=== PATIENT | male | born 1990 | race Caucasian/White ===

== ENCOUNTER 2020-06-17 18:02 | Emergency (ER) | payer BC, SELFPAY ==
--- NOTE | ~2020-06-17 | XR_ITS ---
EXAMINATION: XR chest 2V 06/17/2020 18:35 INDICATION: Right-sided chest pain and shortness of breath PROCEDURE: 2 view chest COMPARISON: No prior studies for comparison. FINDINGS: The lungs are clear. The cardiomediastinal silhouette is within normal limits. There are no pleural effusions. There is no pneumothorax suspected. IMPRESSION: 1: NO ACUTE CARDIOPULMONARY DISEASE. Reviewed, dictated and finalized at location A.
[2020-06-17 18:04] VITALS: BP 197/119; PULSE 104; RESP 18; TEMP 36.6; O2SAT 99
--- NOTE | 2020-06-17 18:08 | ECG_ITS ---
Measurements Intervals [place] Rate: 93 P: 47 VA: 148 QRS: 7 QRSD: 72 T: 34 QT: 303 QTc: 378 Interpretive Statements SINUS RHYTHM WITH SINUS ARRHYTHMIA NORMAL ECG Electronically Signed On 06-17-2020 18:17:46 CDT by Allen Bashir D.O.
[2020-06-17 18:09] VITALS: BP 197/119; PULSE 115; PULSE 99; RESP 28; O2SAT 95
--- NOTE | 2020-06-17 18:17 | ED.CHESTPAIN ---
HPI - Chest Pain General Chief Complaint: Chest Pain Stated Complaint: CP Time Seen by Provider: 06/17/20 18:16 Source: patient History of Present Illness HPI narrative: 29 years old white male, obese, unremarkable past medical history, history of depression 7 years ago not on medication since. Presents to the ED with intermittent right chest pain, heaviness, intermittent for the last 7 days. Last one was 1 hour prior to arrival to the emergency room usually he gets chest pain at rest while sitting or laying down. No chest pain on exertion. Patient reports a lot of stress lately, he lives with family, denies any smoking, drinking, or family history of coronary artery disease. Currently patient is asymptomatic Related Data Home Medications Medication Instructions Recorded Confirmed No Home Medications 06/17/20 06/17/20 Allergies Allergy/AdvReac Type Severity Reaction Status Date / Time Sulfa (Sulfonamide Allergy Unknown Skin Verified 06/17/20 18:10 Antibiotics) Reaction Review of Systems Review of Systems: Narrative: CONSTITUTIONAL: Denies fever, chills, or sweats. EYES: Denies visual changes, redness, or discharge. ENT: Denies rhinorrhea, congestion, sore throat, or otalgia. CARDIOVASCULAR: Denies chest pain, palpitations, or edema. RESPIRATORY: Denies cough or dyspnea. GASTROINTESTINAL: Denies abdominal pain, nausea, vomiting, or diarrhea. GENITOURINARY: Denies dysuria or hematuria. SKIN: Denies rash or itching. MUSCULOSKELETAL: Denies back pain, joint pain, or myalgia. NEUROLOGIC: Denies headache, numbness, or weakness. PSYCHIATRIC: Denies anxiety or depression. PMFSH Family History Family History Grandparent Diabetes mellitus Hypertension Social History Social History Smoking status: Never smoker Alcohol intake: current Gender identity (if verbalized by the patient): Male Exam Narrative: Exam Narrative: General appearance: Well-developed, well-nourished Skin: Normal color Head: Normocephalic, nontraumatic Eyes: Clear conjunctiva ENT: Oropharynx normal, ears normal, nose normal Neck: Supple, nontender Chest and respiratory: Airway patent, no respiratory distress, no accessory muscle use Heart: Regular rate/rhythm Abdomen: Soft, nontender, no organomegaly, quiet bowel sounds Vascular: Normal peripheral pulses, normal capillary refill. Musculoskeletal: Normal range of motion, nontender back Neurologic: Alert and oriented ?3, [employer] is normal as tested, no gross motor deficit Course Course Emergency Course: Improving Reevaluation(s) Reevaluation #1: Patient still asymptomatic Blood pressure was elevated on arrival to the emergency room, within 30 minutes of blood pressure went down to normal limits, currently is 117/81 Chest pain is likely secondary to stress, anxiety or muscle. 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 On the right side, only at rest, intermittent. Blood pressure on arrival is 197/119, pulse is 104. Anxiety, stress, pulmonary embolism, hypertensio
[2020-06-17 18:20] LABS: Basophils Percent Auto 0.3 % (0.2-1.2); Eosinophils Absolute Auto 0.2 K/mm3 (0-0.3); Eosinophils Percent Auto 1.5 % (0-4.4); Hematocrit 44.1 % (42.0-52.0); Hemoglobin 14.6 g/dL (14.0-18.0); Immature Granulocyte Absolute 0.03 K/mm3 (0.00-0.031); Immature Granulocyte Percent A 0.3 % (0-0.5); Lymphocytes Absolute Auto 2.59 K/mm3 (0.9-3.2); Mean Corpuscular HGB Conc 33.1 g/dl (32-36); Mean Corpuscular Volume 84.5 fl (80-100); Mean Platelet Volume 8.9 fl (7.4-10.4); Monocytes Absolute Auto 0.9 K/mm3 (0.1-0.6); Monocytes Percent Auto 8.5 % (2.6-8.5); Neutrophils Absolute Auto 6.7 K/mm3 (1.3-6.7); Neutrophils Percent Auto 64.4 % (45.5-73.1); Platelet Count Result 282 k/mm3 (150-375); Red Blood Count 5.22 M/mm3 (4.6-6.20); Red Cell Distribution Width 12.7 % (11.5-14.5); White Blood Count 10.3 K/mm3 (4.5-10.0)
[2020-06-17 18:30] LABS: INR 1.1; Prothrombin Time 13.4 Seconds (11.1-14.7)
[2020-06-17 18:31] LABS: Partial Thromboplastin Time 30.1 SECONDS (22.3-36.8)
[2020-06-17 18:32] LABS: Anion Gap 12.9 mmol/L (7-16); Blood Urea Nitrogen 14 mg/dL (9-20); Calcium 9.3 mg/dL (8.4-10.2); Carbon Dioxide 30 mmol/L (22-30); Chloride 101 mmol/L (98-107); Estimated CRCL calculation 142 ml/min; Estimated Glomerular Filt Rate > 60; Glucose 111 mg/dL (75-110); Potassium 3.9 mmol/L (3.4-5.0); Sodium 140 mmol/L (137-145)
[2020-06-17 18:44] LABS: Troponin I < 0.012 ng/mL (0.000-0.034)
--- NOTE | 2020-06-17 18:50 | PC.NURSE ---
PT BACK FROM RADIOLOGY AT THIS TIME.
[2020-06-17 19:03] LABS: D Dimer < 0.22 ug/mL (<0.48)
[2020-06-17 19:15] VITALS: BP 138/81; PULSE 89; RESP 18; O2SAT 98
--- NOTE | 2020-06-17 19:15 | PC.NURSE ---
SPOKE WITH PAR[facility] PAYTON ABOUT ORDERED MEDICATION, PT BP 138/81 AT THIS TIME AND HE AGREES THAT PT DOES NOT NEED METOPROLOL, ASPIRIN, OR NITRO. ORDERS CANCELLED. PT REPORT GIVEN BEDSIDE TO [facility] AT THIS TIME, SHE HAS ASSUMED PT CARE.
[2020-06-17 20:00] VITALS: BP 135/83; PULSE 87; RESP 19; O2SAT 97
== END 2020-06-17 20:15 | disposition home or self-care (01) ==
PROVIDERS: Emergency Medicine; Emergency Provider Emergency Medicine
DX: R07.9 Chest pain, unspecified (principal); E66.9 Obesity, unspecified; Z68.39 Body mass index [BMI] 39.0-39.9, adult
CPT/HCPCS: 36415; 71046; 80048; 84484; 85025; 85380; 85610; 85730; 93005; 99284